=== PATIENT | male | born 1990 | race Caucasian/White ===

== ENCOUNTER 2016-07-27 23:47 | Emergency (ER) | payer SELFPAY ==
[~2016-07-27] VITALS: Ht 180.3 cm; Wt 83.9 kg
--- NOTE | 2016-07-27 23:59 | NUR ---
To bed 7 a 26 yo male bibself with c/o of hemorrhoids. Per patient he has history of hemorrhoids and he came to ER because he "feels that I have more hemorrhoids now and its painful." No bleeding noted. Gowned patient. Awaiting for er md cordero.
--- NOTE | 2016-07-28 00:03 | NUR ---
Dr Paul at bedside for eval.
--- NOTE | 2016-07-28 00:17 | NUR ---
Patient discharged to home in stable condition. Written and verbal after care instructions given. Patient verbalizes understanding of instruction. Patient is ambulatory with a steady gait.
[2016-07-28 00:18] VITALS: BP 154/60
== END 2016-07-28 00:21 | disposition home or self-care (01) ==
LOC: ER 23:47
DX: K64.4 Residual hemorrhoidal skin tags (principal)
CPT/HCPCS: A4606; Z7610